=== PATIENT | female | born 1990 | race American Indian/Alaskan Native ===

== ENCOUNTER 2019-06-12 18:51 | Inpatient (IN) | payer OTHER ==
--- NOTE | 2019-06-12 20:19 | Event Note ---
ED Screening Note Date of service: 06/12/19 Time: 20:15 ED Screening Note: This is a 28 y.o. F. that presents to the ER with vaginal bleeding, lower abdominal pain, and back pain x 2 days. LMP 05/04/2019, A0 Reports pain is worse than usual. This initial assessment/diagnostic orders/clinical plan/treatment(s) is/are subject to change based on patients health status, clinical progression and re- assessment by fellow clinical providers in the ED. Further treatment and workup at subsequent clinical providers discretion. Patient/guardian urged not to elope from the ED as their condition may be serious if not clinically assessed and managed. Initial orders include: Labs
[2019-06-12 21:09] LABS: Alanine Aminotransferase < 5 units/L (7-56); Albumin 3.6 g/dL (3.9-5); BUN/Creatinine Ratio 14; Blood Urea Nitrogen 7 mg/dL (7-17); Calcium 8.7 mg/dL (8.4-10.2); Hemolysis Index 3
[2019-06-12 21:18] LABS: Bilirubin,Urine NEG (Negative); Blood,Urine LG (Negative); Color,Urine Amber (Yellow); Mucus,Urine 1+ /HPF
[2019-06-12] MEDS ORDERED: ACETAMINOPHEN 325 MG TAB ONE (21:18)
[2019-06-12 21:19] LABS: RBC,Urine > 182.0 /HPF (0.0-6.0); WBC,Urine > 182.0 /HPF (0.0-6.0)
[2019-06-12] MEDS ORDERED: ACETAMINOPHEN 325 MG TAB PO ONE (21:25)
[2019-06-12 21:28] LABS: Basophils % (Auto) 0.2 % (0.0-1.8); Eosinophils % (Auto) 0.2 % (0.0-4.3); Hemoglobin 9.4 gm/dl (10.1-14.3); Lymphocytes # (Auto) 1.5 K/mm3 (1.2-5.4); Lymphocytes % (Auto) 11.9 % (13.4-35.0); Mean Corpuscular HGB Conc 34 % (30-34); Mean Corpuscular Volume 88 fl (79-97); Monocytes # (Auto) 0.5 K/mm3 (0.0-0.8); Monocytes % (Auto) 3.6 % (0.0-7.3); Platelet Count 490 K/mm3 (140-440)
--- NOTE | 2019-06-12 22:56 | Ultrasound Report ---
US OB >= 14 weeks Fetus INDICATION / CLINICAL INFORMATION: vaginal bleeding and abdominal pain, + urine hcg. COMPARISON: None available. FINDINGS: Single, viable intrauterine in cephalic presentation. heart rate 136. Amniotic fluid volume is abnormally decreased, with a fluid index of only 2 cm. Placenta is posterior and fundal, free of the cervical os. stomach, kidneys and bladder, four-chamber heart, diaphragm, spine, cord and cord insertion are identified and grossly negative. Biparietal diameter 6.7 cm, 27 weeks 0 days. Has recovered 24.9 cm, 27 weeks 0 days. Abdominal circumference 23.9 cm, 28 weeks 1 day. Femur length 5.2 cm, 27 weeks 5 days. Cervical length 3.0 cm. IMPRESSION: 1. Single, viable intrauterine in cephalic presentation. Estimated gestational age 27 weeks 3 days. Signer Name: Gaurav Cervantes MD Signed: 06/12/2019 10:52 PM Workstation Name: [id number]
--- NOTE | 2019-06-12 23:03 | Emergency Department Report ---
ED Female HPI - General Chief complaint: Vaginal Bleeding Stated complaint: ABD PAIN LOWER BACK PAIN PELVIC PAIN W/BLEEDING Time Seen by Provider: 06/12/19 20:15 Source: patient Mode of arrival: Ambulatory Limitations: No Limitations - History of Present Illness Initial comments: Kristin is a very pleasant 28 yo female without significant past medical hx who presents with pelvic pain/cramping/pressure sensation 10/10. Started gradual 3 days ago with vaginal spotting. Now has heavy severe vaginal bleeding heavier than menstrual flow. Worse after transvaginal ultrasound . 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 MD Complaint: vaginal bleeding, pelvic pain -: Gradual, Sudden, days(s) (3) Severity: severe Quality: dull, other (pressure) Improves with: none Worsens with: none Are you Now?: Yes Associated Symptoms: vaginal bleeding - Related Data Allergies Allergy/AdvReac Type Severity Reaction Status Date / Time No Known Allergies Allergy Unverified 06/12/19 18:55 ED Review of Systems ROS: Stated complaint: ABD PAIN LOWER BACK PAIN PELVIC PAIN W/BLEEDING Other details as noted in HPI Comment: All other systems reviewed and negative Constitutional: denies: fever, malaise Gastrointestinal: abdominal pain. denies: nausea, vomiting Genitourinary: other (vaginal bleeding). denies: urgency ED Past Medical Hx - Past Medical History Previous Medical History?: No - Surgical History Past Surgical History?: Yes Additional Surgical History: C section x 3 - Social History Smoking Status: Never Smoker Substance Use Type: None ED Physical Exam - General Limitations: No Limitations General appearance: alert, in no apparent distress, other (appears uncomfortable) - Head Head exam: Present: atraumatic, normocephalic - Eye Eye exam: Present: normal appearance - ENT ENT exam: Present: mucous membranes moist - Neck Neck exam: Present: normal inspection, full ROM - Respiratory Respiratory exam: Present: normal lung sounds bilaterally. Absent: respiratory distress, wheezes, rales, rhonchi - Cardiovascular Cardiovascular Exam: Present: regular rate, normal rhythm, normal heart sounds. Absent: systolic murmur, diastolic murmur, rubs, gallop - GI/Abdominal GI/Abdominal exam: Present: soft, distended (gravid). Absent: tenderness, guarding, rebound - Extremities Exam Extremities exam: Present: normal inspection - Neurological Exam Neurological exam: Present: alert, oriented X3 - Psychiatric Psychiatric exam: Present: normal affect, normal mood - Skin Skin exam: Present: warm, dry, intact, normal color. Absent: rash ED Course Vital Signs 06/12/19 06/12/19 06/12/19 19:09 20:15 21:26 Temperature 97.5 F L 97.5 F L Pulse Rate 86 86 Respiratory 18 18 18 Rate Blood Pressure 116/58 116/58 O2 Sat by Pulse 99 99 Oximetry ED Medical Decision Making - Lab Data Result diagrams: 06/12/19 20:32 06/12/19 20:32 Laboratory Results - last 24 hr 06/12/19 06/12/19 06/12/19 20:32 20:32 20:32 WBC 12.9 H RBC 3.20 L Hgb 9.4 L Hct 28.0 L MCV 88 MCH 30 MCHC 34 RDW 16.0 H Plt Count 490 H Lymph % (Auto) 11.9 L Wise % (Auto) 3.6 Eos % (Auto) 0.2 Baso % (Auto) 0.2 Lymph # 1.5 Wise # 0.5 Eos # 0.0 Baso # 0.0 Seg Neutrophils % 84.1 H Seg Neutrophils # 10.8 H Sodium 138 Potassium 3.0 L Chloride 105.4 Carbon Dioxide 17 L Anion Gap 19 BUN 7 Creatinine 0.5 L Estimated GFR > 60 BUN/Creatinine Ratio 14 Glucose 87 Calcium 8.7 Total Bilirubin 0.30 AST 10 ALT < 5 L Alkaline Phosphatase 150 H Total Protein 7.0 Albumin 3.6 L Albumin/Globulin Ratio 1.1 Lipase 13 HCG, Qual Positive HCG, Quant Urine Color Urine Turbidity Urine pH Ur Specific [place] Urine Protein Urine Glucose (UA) Urine Ketones Urine Blood Urine Nitrite Urine Bilirubin Urine Urobilinogen Ur Leukocyte Esterase Urine WBC (Auto) Urine RBC (Auto) U Epithel Cells (Auto) Urine Mucus 06/12/19 06/12/19 20:32 21:01 WBC RBC Hgb Hct MCV MCH MCHC RDW Plt Count Lymph % (Auto) Wise % (Auto) Eos % (Auto) Baso % (Auto) Lymph # Wise # Eos # Baso # Seg Neutrophils % Seg Neutrophils # Sodium Potassium Chloride Carbon Dioxide Anion Gap BUN Creatinine Estimated GFR BUN/Creatinine Ratio Glucose Calcium Total Bilirubin AST ALT Alkaline Phosphatase Total Protein Albumin Albumin/Globulin Ratio Lipase HCG, Qual HCG, Quant 3464 H Urine Color Carmen Urine Turbidity Cloudy Urine pH 5.0 Ur Specific [place] 1.047 H Urine Protein 100 mg/dl Urine Glucose (UA) Neg Urine Ketones Neg Urine Blood Lg Urine Nitrite Neg Urine Bilirubin Neg Urine Urobilinogen 2.0 Ur Leukocyte Esterase Mod Urine WBC (Auto) > 182.0 H Urine RBC (Auto) > 182.0 U Epithel Cells (Auto) 9.0 Urine Mucus 1+ - Radiology Data Radiology results: report reviewed Radiology impression: ultrasound reveals viable IUP EGA 27 weeks 3 days, low amniotic fluid - Medical Decision Making vaginal bleeding third trimester : transferred to L&D for urgent treatment and evaluation, w Labs reviewed notable for decreased H&H, hypokalemia ED rhogam assay ordered Critical care attestation.: If time is entered above; I have spent that time in minutes in the direct care of this critically ill patient, excluding procedure time. ED Disposition Clinical Impression: Vaginal bleeding in patient after first trimester, Threatened miscarriage Disposition: DC/TX-70 ANOTHER TYPE HLTHCARE Is pt being admited?: No Does the pt Need Aspirin: No Condition: Stable
[2019-06-12] MEDS ORDERED: LACTATED RINGERS 1,000 ML IV ONE (23:47)
[2019-06-13] MEDS ORDERED: ACETAMINOPHEN 325 MG TAB PO PRN (00:19)
[2019-06-13] MEDS ORDERED: ONDANSETRON 4 MG/2 ML INJ IV PRN (00:19)
[2019-06-13] MEDS ORDERED: DOCUSATE SODIUM 100 MG CAP PO PRN (00:19)
[2019-06-13] MEDS ORDERED: MAGNESIUM SULFATE 4 GM/100 ML BAG IV ONE (00:21)
[2019-06-13] MEDS ORDERED: MAGNESIUM SULFATE 40GM/1000ML 40 GM/1,000 ML BAG IV SCH (01:00)
[2019-06-13] MEDS ORDERED: BETAMET ACET/BETAMET NA PH 6 MG/ML INJ 5 ML MDV IM SCH (01:00)
[2019-06-13] MEDS: BUTORPHANOL 2 MG/1 ML INJ IV PRN ×3 (01:18→20:20)
[2019-06-13] MEDS: LACTATED RINGERS 1,000 ML IV SCH ×2 (01:27→22:37)
[2019-06-13] MEDS: AMPICILLIN/NS 2 GM/100 ML 2 GM/100 ML BAG IV SCH ×3 (01:30→13:26)
--- NOTE | 2019-06-13 08:25 | History and Physical Report ---
History of Present Illness Date of examination: 06/13/19 Date of admission: 06/13/19 01:28 Chief complaint: vaginal bleeding and leaking fluid History of present illness: 28y/o @ 27+4 weeks presents to triage with the complaint of vaginal bleeding. The patient reports she was unaware she was . Three days ago she experienced vaginal bleeding with fluid leakage. Last night she noted the pain was worse and presented to the ED where she was informed that she ws . She denies any history of delivery in the past. Previous pregnancies uncomplicated. On presentation, ultrasound demonstrated CHUCK of 2cm. The patient was dilated 3-4cm on exam. Past History Past Medical History: other (obesity) Past Surgical History: section Social history: single - Obstetrical History Expected Date of Delivery: 09/08/19 Actual Gestation: 27 Week(s) 4 Day(s) : 4 Para: 3 Hx # Term Pregnancies: 3 Number of Pregnancies: 0 Spontaneous Abortions: 0 Induced : 0 Number of Living Children: 3 Medications and Allergies Allergies Allergy/AdvReac Type Severity Reaction Status Date / Time No Known Allergies Allergy Unverified 06/12/19 18:55 Home Medications Medication Instructions Recorded Confirmed Last Taken Type No Known Home Medications [No 06/13/19 06/13/19 Unknown History Reported Home Medications] Active Meds: Active Medications Acetaminophen (Tylenol) 650 mg PO Q4H PRN PRN Reason: Pain MILD(1-3)/Fever >100.5/THOMPSON Betamethasone Acet/Betameth SodPhos (Celestone Soluspan) 12 mg IM Q24H JEFF Stop: 06/14/19 01:01 Last Admin: 06/13/19 01:16 Dose: 12 mg Documented by: Butorphanol Tartrate (Stadol) 2 mg IV Q2H PRN PRN Reason: Labor Pain Last Admin: 06/13/19 04:14 Dose: 2 mg Documented by: Docusate Sodium (Colace) 100 mg PO Q12H PRN PRN Reason: Constipation Lactated Ringer's (Lactated Ringers) 1,000 mls @ 75 mls/hr IV DIRECT JEFF Last Admin: 06/13/19 01:27 Dose: 75 mls/hr Documented by: Ampicillin Sodium (Ampicillin/Ns 2 Gm/100 Ml) 2 gm in 100 mls @ 100 mls/hr IV Q6HR JEFF; Protocol Stop: 06/14/19 18:59 Last Admin: 06/13/19 07:12 Dose: 100 mls/hr Documented by: Magnesium Sulfate (Magnesium Sulfate 40gm/1000ml) 40 gm in 1,000 mls @ 50 mls/hr IV DIRECT JEFF Last Admin: 06/13/19 02:01 Dose: 2 gm/hr, 50 mls/hr Documented by: Multivitamins/Iron/Calcium ( Vitamin) 1 each PO QDAY JEFF Ondansetron HCl (Zofran) 4 mg IV Q6H PRN PRN Reason: Nausea And Vomiting Review of Systems All systems: negative Genitourinary: vaginal bleeding, leakage of fluid, contractions - Vital Signs Vital signs: Vital Signs Temp Pulse Resp BP Pulse Ox 97.5 F L 86 18 116/58 99 06/12/19 19:09 06/12/19 19:09 06/12/19 19:09 06/12/19 19:09 06/12/19 19:09 Temp Pulse Resp BP Pulse Ox 97.9 F 89 18 105/51 99 06/12/19 23:48 06/13/19 08:19 06/13/19 04:14 06/13/19 08:04 06/13/19 08:19 - Physical Exam Breasts: Positive: deferred Cardiovascular: Regular rate Lungs: Positive: Clear to auscultation Results Result Diagrams: 06/12/19 20:32 06/12/19 20:32 Abnormal lab results 06/12/19 06/12/19 06/12/19 Range/Units 20:32 20:32 20:32 WBC 12.9 H (4.5-11.0) K/mm3 RBC 3.20 L (3.65-5.03) M/mm3 Hgb 9.4 L (10.1-14.3) gm/dl Hct 28.0 L (30.3-42.9) % RDW 16.0 H (13.2-15.2) % Plt Count 490 H (140-440) K/mm3 Lymph % (Auto) 11.9 L (13.4-35.0) % Seg Neutrophils % 84.1 H (40.0-70.0) % Seg Neutrophils # 10.8 H (1.8-7.7) K/mm3 Potassium 3.0 L (3.6-5.0) mmol/L Carbon Dioxide 17 L (22-30) mmol/L Creatinine 0.5 L (0.7-1.2) mg/dL Magnesium (1.7-2.3) mg/dL ALT < 5 L (7-56) units/L Alkaline Phosphatase 150 H (35-129) units/L Albumin 3.6 L (3.9-5) g/dL HCG, Quant 3464 H (0-4) mIU/mL Ur Specific [place]oxie (1.003-1.030) Urine WBC (Auto) (0.0-6.0) /HPF 06/12/19 06/13/19 Range/Units 21:01 05:39 WBC (4.5-11.0) K/mm3 RBC (3.65-5.03) M/mm3 Hgb (10.1-14.3) gm/dl Hct (30.3-42.9) % RDW (13.2-15.2) % Plt Count (140-440) K/mm3 Lymph % (Auto) (13.4-35.0) % Seg Neutrophils % (40.0-70.0) % Seg Neutrophils # (1.8-7.7) K/mm3 Potassium (3.6-5.0) mmol/L Carbon Dioxide (22-30) mmol/L Creatinine (0.7-1.2) mg/dL Magnesium 4.50 H (1.7-2.3) mg/dL ALT (7-56) units/L Alkaline Phosphatase (35-129) units/L Albumin (3.9-5) g/dL HCG, Quant (0-4) mIU/mL Ur Specific [place] 1.047 H (1.003-1.030) Urine WBC (Auto) > 182.0 H (0.0-6.0) /HPF All other labs normal. Assessment and Plan - Patient Problems (1) No care in current Current Visit: Yes Status: Acute Plan to address problem: admit for magnesium and steroids will obtain NICU consult (2) premature rupture of membranes Current Visit: Yes Status: Acute (3) labor Current Visit: Yes Status: Acute (4) Previous delivery affecting Current Visit: Yes Status: Acute
[2019-06-13] MEDS ORDERED: POTASSIUM CHLORIDE ER 20 MEQ TAB PO ONE (10:00)
[2019-06-13] MEDS ORDERED: PRENATAL VIT27-FE FUMARATE-FOLIC ACID VIT TAB PO SCH (10:00)
--- NOTE | 2019-06-13 10:28 | Consultation ---
Consult Note - Parent Education I met with parent(s) and discussed the following:: Need for NICU admission, Poss ible need for intubation and surfactant or other resp support, Temperature regulation, Head ultrasounds to evaluate IVH, Eye exams for ROP screening, Possible need for IV fluids/TPN and IV antibiotics, Possible need for umbilical lines, Importance of providing breast milk & encouraged pumping aft delivery (Mother is interested in EBM/DBM), Donor breast milk if baby meets criteria after , Slow feeding advancement and monitoring of tolerance. NG/OG feeds, Need to monitor for jaundice, Data for survival & survival without significant co-morbidities Parent(s) demonstrated understanding of all the information:: Yes Assessment and Plan - Assessment Gestation:: 27 (27 4/7 weeker) Estimated Weight: 1131gms +/- 167 gms Baby's name: N/A Additional Comment: 24YO with previous CS. Rec's no care. Unawared that she was prior to admission. complicated by PPROM (SROM 06/10), and PT labor. Per US, infant is 27 4/7 weeker. Mother rec's mag, ampicillin x2, and beta x1. Will rec's 2nd dose of beta 11/20 morning. Mother verbalized that her biological mother is deaf on both ears. - Plan Plan: Agree with Mag & steroids Will attend delivery Please call NICU with questions
[2019-06-13] MEDS ORDERED: ERYTHROMYCIN LACTOBIONATE 250 MG in SODIUM CHLORIDE 0.9% 100 ML IV SCH (11:00)
[2019-06-13] MEDS ORDERED: BICITRA ORAL LIQD 30ML PO ONE (17:38)
[2019-06-13] MEDS ORDERED: FAMOTIDINE 20 MG/2 ML INJ IV ONE (17:38)
[2019-06-13] MEDS ORDERED: METOCLOPRAMIDE 10 MG/2 ML INJ IV ONE (17:38)
--- NOTE | 2019-06-13 17:43 | Anesthesia Consultation ---
Anesthesia Consult and Med Hx Date of service: 06/13/19 - Airway Anesthetic Teeth Evaluation: Good ROM Head & Neck: Adequate Mental/Hyoid Distance: Adequate Mallampati Class: Class II Intubation Access Assessment: Probably Good - Pulmonary Exam CTA: Yes - Cardiac Exam Cardiac Exam: RRR - Pre-Operative Health Status ASA Pre-Surgery Classification: ASA3 Proposed Anesthetic Plan: Spinal - Pulmonary Hx Asthma: Yes (childhood) COPD: No Hx Pneumonia: No - Cardiovascular System Hx Hypertension: No - Central Nervous System Hx Seizures: No Hx Psychiatric Problems: No - Endocrine Hx Renal Disease: No Hx End Stage Renal Disease: No Hx Hypothyroidism: No Hx Hyperthyroidism: No - Hematic Hx Anemia: Yes Hx Sickle Cell Disease: No - Other Systems Hx Alcohol Use: Yes Hx Substance Use: Yes (marijuana) Hx Obesity: Yes
--- NOTE | 2019-06-13 17:43 | Anesthesia Day of Surgery ---
Anesthesia Day of Surgery - Day of Surgery Patient Examined: Yes Patient H&P Reviewed: Yes Patient is NPO: Yes
[2019-06-13] MEDS ORDERED: ceFAZolin/Water 2 GM/20 ML 2 GM/20 ML SYRINGE IV NR (18:00)
[2019-06-13] MEDS ORDERED: OXYTOCIN 20 UNIT/1000ML DRIP 20 UNITS/1,000 ML BAG IV SCH ×2 (18:00→19:00)
[2019-06-13] MEDS ORDERED: LACTATED RINGERS 1,000 ML IV SCH (18:00)
--- NOTE | 2019-06-13 18:21 | Event Note ---
Date: 06/13/19 Patient reports worsening pain and contractions. Foul odor noted from vaginal fluid. Uterus with increased tenderness on exam. Will proceed with a repeat delivery.
--- NOTE | 2019-06-13 18:22 | Procedure Note ---
OB Delivery Note - Delivery Date of Delivery: 06/13/19 Surgeon: ANH SAN Estimated blood loss: 500cc - Section Preop diagnosis: repeat Postop diagnosis: same section procedure: section, repeat low transverse Disposition: PACU Complications: none - A at 1 minute: 7 at 5 minutes: 8 Gender: Male (1220gms)
[2019-06-13] MEDS ORDERED: KETOROLAC 30 MG/1 ML INJ IV PRN (18:31)
[2019-06-13] MEDS ORDERED: NALOXONE 0.4 MG/1 ML INJ IV PRN (18:31)
[2019-06-13] MEDS ORDERED: WITCH HAZEL/ GLYCERIN PAD TP PRN (18:31)
[2019-06-13] MEDS ORDERED: LANOLIN/ZINC/DIMETHICONE (LANSINOH) 7 GM TP PRN (18:31)
[2019-06-13] MEDS ORDERED: KETAMINE/STERILE WATER 50 MG/ML SYRINGE ONE (18:35)
[2019-06-13] MEDS ORDERED: PROPOFOL 200 MG/20 ML VIAL IV ONE (18:35)
[2019-06-13] MEDS ORDERED: SODIUM CHLORIDE 0.9% 500 ML 500 ML ONE (18:51)
[2019-06-13] MEDS ORDERED: ONDANSETRON 4 MG/2 ML INJ ONE (18:51)
[2019-06-13] MEDS ORDERED: SUCCINYLCHOLINE CHLORIDE 200 MG/10 ML INJ MDV ONE (18:51)
[2019-06-13] MEDS ORDERED: dexAMETHasone 20 MG/5 ML VIAL ONE (18:51)
[2019-06-13] MEDS ORDERED: DEXMEDETOMIDINE 200 MCG/2 ML VIAL IV ONE (18:52)
[2019-06-13] MEDS ORDERED: PORACTANT ALFA 80 MG/ML (3 ML) VIAL ONE (18:59)
[2019-06-13] MEDS ORDERED: ROCURONIUM 50 MG/5 ML INJ IV ONE (19:03)
[2019-06-13] MEDS ORDERED: OXYTOCIN 10 UNIT/1 ML INJ ONE (19:16)
[2019-06-13] MEDS ORDERED: METHYLERGONOVINE MALEATE 0.2 MG/ML VIAL IM ONE (19:18)
[2019-06-13] MEDS ORDERED: KETOROLAC 30 MG/1 ML INJ ONE (19:27)
[2019-06-13] MEDS ORDERED: GLYCOPYRROLATE 0.4 MG/2 ML INJ ONE (19:30)
[2019-06-13] MEDS ORDERED: NEOSTIGMINE 10MG/10 ML INJ MDV ONE (19:30)
--- NOTE | 2019-06-13 19:54 | Operative Report ---
Operative Report Operative Report: Date of surgery: 06/13/2019 Preoperative diagnosis: at 27 weeks and 3 days; labor; premature rupture membranes; chorioamnionitis Postoperative diagnosis: Same as above Procedure: Repeat low-transverse delivery and lysis of adhesions Surgeon: Chloé Mohan M.D. Anesthesia: General endotracheal anesthesia Estimated blood loss: 500 mL Pathology: Placenta Findings: Liveborn male with Apgars of 7 and 8 weight 1220 g Indications: 28-year-old at 27+3 weeks who presents with unknown vaginal bleeding. The patient was unaware that she was . Upon evaluation the patient was found to be 27 weeks estimated gestational age and had premature rupture of membranes. Patient was also noted to be dilated 3-4 cm. Her intrapartum course was complicated by chorioamnionitis which promoted delivery. Procedure: The patient was taken to the operating room and given general anesthesia without complication. She was prepped and draped in a normal sterile fashion. A Pfannenstiel skin incision was made down to layer the fascia which was nicked in the midline extended laterally with the Bovie cautery. The superior aspect of the rectus fascia was grasped with Julissa clamps x2 and the rectus muscles off sharply. This was done in inferior fashion as well. The rectus muscle midline and peritoneum entered bluntly. There were multiple adhesions noted. Lysis of adhesions had to be performed in order to facilitate placement of the Sam retractor. An Sam retractor was then inserted. A bladder blade was placed. The vesicouterine peritoneum was then entered sharply with Metzenbaum scissors. A bladder flap was created digitally. A low transverse uterine incision was then made and extended digitally. There was foul-smelling fluid upon entry into the uterine cavity. The head was delivered through the incision with fundal pressure. The cord was clamped and cut x2 and was passed off to pediatrics. The placenta was then manually extracted. The uterus was then exteriorized and cleared of clots and debris. The uterine incision was then closed in a running locked fashion with 0 Vicryl additional imbricating stitch was applied for 2 layer closure. The posterior cul-de-sac was then copiously irrigated. The uterus was replaced back into the abdomen and pelvis were the gutters were then irrigated. The Sam retractor was then removed. Surgicel was placed over the uterine i ncision. The peritoneum was then reapproximated with 3-0 Vicryl incorporating the rectus muscle. The fascia was then closed with 0 Vicryl in a running fashion. The skin was then reapproximated with 4-0 Vicryl on a Oziel needle subcuticular fashion. Steri-Strips to place across the incision and a Crede procedures performed at the end of the surgery. A pressure dressing was applied to the i ncision. The patient was then successfully extubated. The surgery productive of a liveborn male with Apgars of 7 and 8 weight 1220 g. The patient was taken to the recovery room in stable condition. All sponge laps and needle counts correct x2.
--- NOTE | 2019-06-13 20:14 | Post Anesthesia Evaluation ---
- Post Anesthesia Evaluation Patient Participated: Yes Airway Patent: Yes Stable Respiratory Function: Yes Nausea/Vomiting: No Temp > 96.8F: Yes Pain Manageable: Yes Adequeate Hydration: Yes Anesthesia Complications: No
[2019-06-13] MEDS ORDERED: METHYLERGONOVINE MALEATE 0.2 MG/ML VIAL IM STA (21:16)
[2019-06-13] MEDS: MORPHINE 4 MG/1 ML INJ IV PRN (22:16)
[2019-06-14] MEDS: MORPHINE 4 MG/1 ML INJ IV PRN (04:51)
[2019-06-14 06:14] LABS: Hematocrit 23.8 % (30.3-42.9); Hemoglobin 7.6 gm/dl (10.1-14.3); Mean Corpuscular HGB Conc 32 % (30-34); Mean Corpuscular Volume 89 fl (79-97); Platelet Count 415 K/mm3 (140-440); Red Blood Count 2.68 M/mm3 (3.65-5.03); Red Cell Distribution Width 16.2 % (13.2-15.2)
[2019-06-14 09:00] LABS: BUN/Creatinine Ratio 10; Blood Urea Nitrogen 4 mg/dL (7-17); Calcium 7.8 mg/dL (8.4-10.2); Hemolysis Index 8
[2019-06-14 11:18] LABS: Amphetamine Screen,Urine PRESUMPTIVE NEGATIVE; Benzodiazepines Screen,Urine PRESUMPTIVE NEGATIVE; Cocaine Screen,Urine PRESUMPTIVE NEGATIVE; Methadone Screen,Urine PRESUMPTIVE NEGATIVE
[2019-06-14 11:34] LABS: Cannabinoid Screen,Urine PRESUMPTIVE POSITIVE; Opiate Screen,Urine PRESUMPTIVE POSITIVE
[2019-06-14] MEDS: oxyCODONE /ACETAMINOPHEN 5-325MG TAB PO PRN ×2 (12:35→20:21)
--- NOTE | 2019-06-14 13:32 | Progress Note ---
Assessment and Plan POD1 s/p repeat LTCS at 27.4 weeks EGA Elevated WBC. Afebrile Severe anemia- ferrous sulfate Desires to breast feed- needs pump Anticipate d/c to home on POD3 Subjective - Subjective Date of service: 06/14/19 Principal diagnosis: s/p repeat LTCS Interval history: Pt is POD1 s/p repeat LTCS at 27.4 weeks EGA, chorioamnionitis Patient reports: appetite normal, voiding normally, pain well controlled, ambulating normally, no flatus [place]: in NICU, bottle feeding Objective - Vital Signs Latest vital signs: Vital Signs Temp Pulse Resp BP BP Pulse Ox 06/14/19 12:26 98.2 F 74 18 105/61 06/14/19 09:09 74 18 108/53 06/14/19 07:32 98.3 F 76 18 80/33 06/14/19 04:41 98.2 F 91 H 20 120/72 95 06/13/19 21:45 98.7 F 72 18 113/63 06/13/19 20:55 78 17 100/59 96 06/13/19 20:40 75 23 111/48 97 06/13/19 20:25 69 72 H 105/45 95 06/13/19 20:10 76 21 117/53 95 06/13/19 20:05 75 24 133/57 93 06/13/19 20:00 79 24 121/53 94 06/13/19 19:55 98.1 F 100 H 20 137/66 92 06/13/19 18:10 100 H 98 06/13/19 18:05 94 H 98 06/13/19 18:04 96 H 122/69 06/13/19 18:00 100 H 98 06/13/19 17:55 99 H 99 06/13/19 17:50 100 H 77 L 06/13/19 17:45 90 99 06/13/19 17:40 100 H 99 06/13/19 17:35 96 H 100 06/13/19 17:34 96 H 123/71 06/13/19 17:30 90 99 06/13/19 17:25 93 H 100 06/13/19 17:20 94 H 99 06/13/19 17:14 91 H 98 06/13/19 17:09 95 H 99 06/13/19 17:04 99 H 116/51 97 19 17:00 98.9 F 19 16:59 97 H 98 19 16:54 99 H 98 19 16:49 105 H 99 19 16:44 106 H 99 19 16:39 107 H 100 19 16:34 100 H 116/59 99 19 16:29 100 H 99 19 16:24 99 H 97 19 16:19 99 H 99 19 16:14 102 H 99 06/13/19 16:09 101 H 99 19 16:04 92 H 106/57 97 06/13/19 16:00 98.9 F 06/13/19 15:59 94 H 97 19 15:54 98 H 97 06/13/19 15:49 93 H 97 19 15:44 94 H 97 06/13/19 15:39 94 H 97 06/13/19 15:34 91 H 109/54 96 19 15:29 93 H 96 06/13/19 15:24 92 H 97 19 15:19 90 98 06/13/19 15:14 92 H 97 19 15:09 98 H 99 06/13/19 15:04 89 106/53 96 06/13/19 15:00 97.7 F 06/13/19 14:59 89 97 19 14:54 91 H 97 19 14:49 89 97 19 14:44 91 H 98 06/13/19 14:39 93 H 97 19 14:34 93 H 109/59 98 06/13/19 14:29 96 H 99 06/13/19 14:24 92 H 99 19 14:19 98 H 98 06/13/19 14:14 93 H 99 06/13/19 14:09 88 97 19 14:04 89 109/56 98 06/13/19 14:00 98.9 F 19 13:59 88 97 19 13:54 89 97 19 13:49 88 98 19 13:44 91 H 98 06/13/19 13:39 93 H 98 06/13/19 13:34 90 99 06/13/19 13:33 86 106/52 Intake and Output 06/13/19 06/14/19 06/14/19 23:59 07:59 15:59 Intake Total 1700 720 480 Output Total 485 950 Balance 1215 -230 480 Intake: IV 1700 Oral 720 480 Output: Urine 485 950 Indwelling Catheter 200 850 Void 100 Other: Total, Intake Amount 480 480 Total, Output Amount 100 100 # Voids Void 1 Estimated Blood Loss 500 - Exam Lungs: Present: Normal air movement Abdomen: Present: soft Uterus: Present: firm, fundal height below umbilicus Extremities: Present: normal Incision: Present: normal, dry, intact (Rajani present) - Labs Labs: Abnormal lab results 06/13/19 06/14/19 06/14/19 Range/Units 20:23 05:58 08:26 WBC 15.9 H (4.5-11.0) K/mm3 RBC 2.68 L (3.65-5.03) M/mm3 Hgb 7.6 L (10.1-14.3) gm/dl Hct 23.8 L (30.3-42.9) % RDW 16.2 H (13.2-15.2) % Carbon Dioxide 17 L (22-30) mmol/L BUN 4 L (7-17) mg/dL Creatinine 0.4 L (0.7-1.2) mg/dL Glucose 131 H (65-100) mg/dL Calcium 7.8 L (8.4-10.2) mg/dL Magnesium 3.60 H (1.7-2.3) mg/dL
[2019-06-15] MEDS: IBUPROFEN 800 MG TAB PO PRN ×2 (05:16→17:10)
[2019-06-15 07:46] LABS: HIV-1 Antibody Differentiation SEE SCANNED RESULTS; HIV-2 Antibody Differentiation SEE SCANNED RESULTS
--- NOTE | 2019-06-15 08:34 | Progress Note ---
Assessment and Plan POD2 s/p repeat LTCS at 27.4 weeks EGA VSS Severe anemia- ferrous sulfate Continue pumping Anticipate d/c to home on POD3 Subjective - Subjective Date of service: 06/15/19 Principal diagnosis: s/p repeat LTCS Interval history: Pt is POD2 s/p repeat LTCS at 27.4 weeks EGA, chorioamnionitis Patient reports: appetite normal, voiding normally, pain well controlled, flatus, ambulating normally, other (pumping, produced a few drops of colostrum) [place]: in NICU Objective - Vital Signs Latest vital signs: Vital Signs Temp Pulse Resp BP Pulse Ox 06/15/19 00:45 98.1 F 83 18 109/60 96 06/14/19 12:26 98.2 F 74 18 105/61 06/14/19 09:09 74 18 108/53 Intake and Output 06/14/19 06/15/19 06/15/19 23:59 07:59 15:59 Intake Total 240 480 Balance 240 480 Intake: Oral 240 480 Other: Total, Intake Amount 240 240 # Voids Void 1 1 - Exam Lungs: Present: Normal air movement Abdomen: Present: soft Uterus: Present: firm, fundal height below umbilicus Extremities: Present: normal Incision: Present: normal, suppurative (mild, serosanguinous, non-tender or erythematous), intact - Labs Labs: Abnormal lab results 06/14/19 Range/Units 08:26 Carbon Dioxide 17 L (22-30) mmol/L BUN 4 L (7-17) mg/dL Creatinine 0.4 L (0.7-1.2) mg/dL Glucose 131 H (65-100) mg/dL Calcium 7.8 L (8.4-10.2) mg/dL
[2019-06-15] MEDS: oxyCODONE /ACETAMINOPHEN 5-325MG TAB PO PRN (09:38)
[2019-06-16] MEDS: IBUPROFEN 800 MG TAB PO PRN (00:09)
[2019-06-16 08:24] LABS: Hematocrit 20.9 % (30.3-42.9); Hemoglobin 6.9 gm/dl (10.1-14.3)
[2019-06-16] MEDS: oxyCODONE /ACETAMINOPHEN 5-325MG TAB PO PRN ×3 (08:59→21:19)
--- NOTE | 2019-06-16 15:14 | Progress Note ---
Assessment and Plan A: POD#3 s/p repeat section at 27 wks, PPROM, Chorioamnionitis, Acute on chronic anemia P: Routine postoperative care. Repeat Hemoglobin and Hematocrit Subjective - Subjective Date of service: 06/16/19 Principal diagnosis: s/p repeat LTCS at 27 wks Interval history: Pt without complaints. Doing well. Pt was unaware of until day prior to delivery. Minimal lochia. Pain well-controlled. +flatus. + BM. Patient reports: appetite normal, voiding normally, pain well controlled, flatus, bowel movement, ambulating normally [place]: in NICU Objective - Vital Signs Latest vital signs: Vital Signs Temp Pulse Resp BP BP Pulse Ox 06/16/19 08:40 98.5 F 76 18 113/72 06/16/19 01:54 98.2 F 78 20 90/40 97 06/15/19 17:10 98.3 F 72 18 102/62 97 Intake and Output 06/16/19 06/16/19 06/16/19 06:59 14:59 22:59 Intake Total 480 480 Balance 480 480 Intake: Oral 480 480 Other: Total, Intake Amount 240 480 # Voids Void 1 - Exam Breasts: Present: deferred Cardiovascular: Present: Regular rate Lungs: Present: Clear to auscultation Abdomen: Present: soft (obese), normal bowel sounds Uterus: Present: fundal height below umbilicus Extremities: Present: edema (tgrace) Incision: Present: intact - Labs Labs: Abnormal lab results 06/16/19 Range/Units 08:00 Hgb 6.9 L (10.1-14.3) gm/dl Hct 20.9 L (30.3-42.9) %
[2019-06-17 04:43] LABS: Hemoglobin 7.3 gm/dl (10.1-14.3)
[2019-06-17] MEDS: IBUPROFEN 800 MG TAB PO PRN (11:07)
[2019-06-17 13:20] VITALS: BP 132/70
--- NOTE | 2019-06-17 15:00 | Discharge Summary ---
Providers - Providers Date of Admission: 06/13/19 01:28 Date of discharge: 06/17/19 Attending physician: ANH SAN 06/13/19 08:34 Consult to Physician [CONS] Urgent Comment: PREV C/S X3 Consulting Provider: ANH SAN Physician Instructions: Reason For Exam: 27.4 wks, SROM, VAG BLEEDING Primary care physician: ANH SAN Hospitalization Reason for admission: labor, rupture of membranes Delivery: Procedure: section, repeat low transverse Procedure details: Please see operative report. Episiotomy: none Laceration: none Incision: intact complications: none Discharge diagnosis: delivery [place] baby: male Hospital course: Pt was admitted with labor and PPROM at 27 wks after recently discovering her . Her labor progressed and she ultimately underwent a repeat section which she tolerated well. Her postoperative course was complicated by asymptomatic anemia. She met discharge criteria on POD# 4. She will follow up in 1 week for an incision check. Condition at discharge: Stable Disposition: [id number] TO HOME OR SELFCARE - Discharge Diagnoses (1) Morbid obesity Status: Acute (2) No care in current Status: Acute Qualifiers: Trimester: second trimester Qualified Code(s): O09.32 - Supervision of with insufficient care, second trimester (3) labor Status: Acute Qualifiers: labor trimester: second trimester labor delivery status: with delivery in second trimester Fetus number: single or unspecified fetus Qualified Code(s): O60.12X0 - labor second trimester with delivery second trimester, not applicable or unspecified (4) premature rupture of membranes Status: Acute Qualifiers: PROM onset of labor timing: unspecified duration between rupture of membranes and onset of labor Qualified Code(s): O42.919 - premature rupture of membranes, unspecified as to length of time between rupture and onset of labor, unspecified trimester (5) Previous delivery affecting Status: Acute (6) Vaginal bleeding in patient after first trimester Status: Acute Plan - Discharge Medications Prescriptions: Clindamycin [Clindamycin CAP] 300 mg PO Q6H #40 capsule Ferrous Sulfate [Ferrous Sulfate 324 MG] 324 mg PO BID #60 tablet. Ibuprofen [Motrin] 600 mg PO Q6H PRN #60 tablet PRN Reason: Pain oxyCODONE /ACETAMINOPHEN [Percocet 5/325] 1 tab PO Q6HR PRN #30 tablet PRN Reason: Pain - Provider Discharge Summary Activity: routine, no sex for 6 weeks, no heavy lifting 4 weeks, no strenuous exercise Diet: routine Instructions: routine Additional instructions: [] Smoking cessation referral if applicable(refer to patient education folder for contact #) [] Refer to [facility] Book[facility] Call your doctor immediately for: * Fever > 100.5 * Heavy vaginal bleeding ( >1 pad per hour) * Severe persistent headache * Shortness of breath * Reddened, hot, painful area to leg or breast * Drainage or odor from incision. * Keep incision clean and dry at all times and follow doctor's instructions regarding bathing/showering - Follow up plan Follow up: ANH SAN MD [Primary Care Provider] - 06/27/19 (Call to schedule incision check ) Forms: [facility] Discharge Summary, Discharge Signature Page
== END 2019-06-17 16:14 | disposition home or self-care (01) | DRG 786 ==
LOC: EDSTATUS 23:19 → TRG 23:23 → LD 06-13 01:28 → OB 06-13 22:11
PROVIDERS: ADMIT Obstetrics & Gynecology; ATTEND Obstetrics & Gynecology
PROC: 10D00Z1 Extraction of Products of Conception, Low, Open Approach (ICD-10-PCS; principal; 2019-06-13)
DX: O60.12X0 Preterm labor second trimester with preterm delivery second trimester, not applicable or unspecified (principal); O41.1220 Chorioamnionitis, second trimester, not applicable or unspecified; D62 Acute posthemorrhagic anemia; O99.02 Anemia complicating childbirth; O99.52 Diseases of the respiratory system complicating childbirth; O99.214 Obesity complicating childbirth; O42.912 Preterm premature rupture of membranes, unspecified as to length of time between rupture and onset of labor, second trimester; O99.89 Other specified diseases and conditions complicating pregnancy, childbirth and the puerperium; O34.211 Maternal care for low transverse scar from previous cesarean delivery; N73.6 Female pelvic peritoneal adhesions (postinfective); O75.89 Other specified complications of labor and delivery; D72.829 Elevated white blood cell count, unspecified; E66.01 Morbid (severe) obesity due to excess calories; Z3A.27 27 weeks gestation of pregnancy; Z37.0 Single live birth
CPT/HCPCS: 36415; 76805; 80048; 80053; 80307; 81001; 83690; 83735; 84702; 84703; 85014; 85018; 85025; 85027; 86592; 86689; 86706; 86762; 86900; 86901; 88305; 88307; G0378; J0290; J0330; J0595; J0702; J1100; J1364; J1885; J2210; J2270; J2405; J2590; J2704; J2710; J2765; J3475; J3490; J7040; J7120